=== PATIENT | female | born 1990 | race Caucasian/White ===

== ENCOUNTER 2017-03-30 16:06 | Inpatient (IN) | payer OTHER ==
[2017-03-30] VITALS (7 sets, daily range): BP systolic 106–142; BP diastolic 61–88
[~2017-03-30] VITALS: Ht 157.5 cm; Wt 74.0 kg
[2017-03-30] MEDS ORDERED: LR 1,000 ML IV SCH (17:32)
[2017-03-30] MEDS ORDERED: LACTATED RINGER'S 1000 ML IV ONE (17:45)
[2017-03-30 18:32] LABS: MEAN CORPUSCULAR HEMOGLOBIN 32.9 pg (27.0-33.0); MEAN CORPUSCULAR HGB CONC 34.7 g/dl (32.0-36.5); MEAN CORPUSCULAR VOLUME 94.9 fl (80.0-96.0); RED CELL DISTRIBUTION WIDTH 13.1 % (11.5-14.5); WHITE BLOOD COUNT 10.8 K/mm3 (4.0-10.0)
[2017-03-30] MEDS ORDERED: VANCOMYCIN HCL 1,000 MG, VIAL MATE ADAPTER 1 EACH in D5W 250 ML IV SCH (19:00)
[2017-03-30] MEDS ORDERED: diphenhydrAMINE 50 MG CAP PO PRN (19:30)
--- NOTE | 2017-03-30 19:51 | HPE ---
DATE OF ADMISSION: 03/30/2017 HISTORY: 26-year-old 2, para 1, LMP 05/28/2016, EDC 04/07/2017, 39+ weeks of gestation with spontaneous rupture of membranes and GBS positive. PAST HISTORY: January 2015, 37-week spontaneous vaginal delivery of female 6 pounds 4 ounces, was GBS positive at that time and received vancomycin. LABORATORY DATA: O+, HIV negative, RPR negative, rubella immune. Varicella immune. Pap normal. Urine negative. Gonorrhea and chlamydia negative. 1-hour glucose 81. GBS is positive. On examination, no distress. Symphysis fundus height is 40, vertex presenting, ballotable, multiparous os, posterior, thick, high, closed, Ferning was positive, Nitrazine was positive, vertex is presenting. Blood pressure 132/80, respirations 18, pulse 170, temperature 97.3. Urine 1.010, pH 7, +1 protein. The rest of the examination is unremarkable. She has a category one strip. Normocephalic, atraumatic. Neck full range of motions. Pupils equal and reactive to light. Distal pulses are symmetric. No evidence of DVT, PE or superficial phebitis. Chest is clear bilaterally to bases. No wheezes or rhonchi. Uterus is nontender. Symphysis fundus height is appropriate. Category one strip. Four quadrant bowel sounds are noted. She has no rashes, lesions or pruritus. No arthralgia, myalgia. No complaints of cough, wheezes, shortness of breath or dyspnea on exertion. No chest pain. No bleeding. Neurologically complete. No incontinency, urgency, or frequency. No nausea, vomiting, diarrhea, constipation. No diabetic issues. No [employer] issues. ALLERGIES: She has allergies to PENICILLIN. Unremarkable past medical history and surgical history. Family history is noncontributory. She does not smoke or drink or abuse drugs. She is . There is no domestic violence. In summary we have a lady with spontaneous rupture of membranes. GBS positive. Allergic to PENICILLIN. Our plan of management is to give antibiotic therapy for GBS prophylaxis in the form of vancomycin, augment with Pitocin in 4 hours if not in active labor and the patient is optional with regards to epidural. We explained to both and the patient that there is a timeline with GBS positive and ruptured membranes and infectivity, tachycardia and increased risk of section and admission to NICU. We plan on letting her go 4 hours to see if she will kick into labor on her own giving us time to give her the vancomycin and if not we will augment with Pitocin.
[2017-03-30] MEDS ORDERED: * PENDING VANCOMYCIN ENTRY XX SCH (21:00)
[2017-03-30] MEDS ORDERED: OXYTOCIN DRIP 30 UNITS in APPROPRIATE DILUENT 1 EA IV SCH (22:00)
[2017-03-31] VITALS (35 sets, daily range): BP systolic 92–146; BP diastolic 50–82
[2017-03-31] MEDS ORDERED: FENTANYL 2MCG/ML ROPIVACAINE 0.2% IN 0.9% NACL 200ML IVBAG As Ordered ONE (01:05)
[2017-03-31] MEDS ORDERED: LACTATED RINGER'S 1000 ML IV PRN (02:15)
[2017-03-31] MEDS ORDERED: ONDANSETRON 4MG/2ML VIAL (J2405) IV PRN (02:15)
[2017-03-31] MEDS ORDERED: FENTANYL/ROPIVACAINE/NACL BAG 200 ML EPIDURAL SCH (02:15)
[2017-03-31] MEDS ORDERED: EPIDURAL COMMENT XX SCH (02:15)
[2017-03-31] MEDS ORDERED: NALOXONE INJ 0.4 MG/1 ML VIAL (J2310) IV PRN (02:15)
[2017-03-31] MEDS ORDERED: diphenhydrAMINE INJ 50MG/ML VIAL (J1200) IV PRN (02:15)
[2017-03-31] MEDS ORDERED: REFRIGERATOR IV KEYS XX PRN (02:15)
[2017-03-31] MEDS ORDERED: EPIDURAL/PCA KEYS XX PRN (02:15)
[2017-03-31] MEDS ORDERED: ePHEDrine SULFATE 25 MG/5 ML(5MG/ML) SYRINGE As Ordered ONE (02:39)
[2017-03-31] MEDS: ePHEDrine SULFATE 25 MG/5 ML(5MG/ML) SYRINGE IV PRN ×3 (02:41→02:55)
[2017-03-31 05:42] LABS: CORD GAS ABE A -2.4; CORD GAS ABE V -3.5; CORD GAS HCO3 A 23.8 MEQ/L; CORD GAS HCO3 V 22.3 MEQ/L; CORD GAS O2 SAT A 65.3 %; CORD GAS O2 SAT V 68.3 %; CORD GAS PCO2 A 45.6 mmHg; CORD GAS PH A 7.335 UNITS; CORD GAS PH V 7.333 UNITS; CORD GAS PO2 A 26.9 mmHg; CORD GAS PO2 V 30.1 mmHg; CORD GAS SBC A 21.6 MEQ/L; CORD GAS SBC V 20.8 MEQ/L; CORD GAS TCO2 A 25.2 MEQ/L; CORD GAS TCO2 V 23.6 MEQ/L
[2017-03-31] MEDS ORDERED: MEASLES,MUMPS,RUBELLA VACCINE INJ (MMR-II) (90707) SC SCH (05:45)
[2017-03-31] MEDS ORDERED: ACETAMINOPHEN 500 MG TAB PO PRN (05:45)
[2017-03-31] MEDS ORDERED: ANUSOL HC CREAM 30GM TOP PRN (05:45)
[2017-03-31] MEDS ORDERED: RHOGAM 300 MCG (1500 IU) INJ (J2790) IM SCH (05:45)
[2017-03-31] MEDS ORDERED: METHYLERGONOVINE MALEATE 0.2 MG TAB PO PRN (05:45)
[2017-03-31] MEDS ORDERED: MOM 30ML SUSPENSION UDC PO PRN (05:45)
[2017-03-31] MEDS ORDERED: DOCUSATE SODIUM 100 MG CAP PO PRN (05:45)
[2017-03-31] MEDS ORDERED: DIBUCAINE 1% OINTMENT 30GM TOP PRN (05:45)
[2017-03-31] MEDS ORDERED: OXYTOCIN INJ 10 UNITS/ML VIAL (J2590) As Ordered ONE (09:56)
[2017-03-31] MEDS: PRENATAL VITAMIN TAB PO SCH (10:32)
[2017-03-31] MEDS: IBUPROFEN 800 MG TAB PO PRN (13:43)
[2017-03-31] MEDS ORDERED: PRENTAB9 PO (16:26)
[2017-04-01] MEDS: IBUPROFEN 800 MG TAB PO PRN ×2 (00:35→18:20)
[2017-04-01 06:00] VITALS: BP 118/79
--- NOTE | 2017-04-01 06:50 | IPN ---
DATE: 03/31/2017 This lady and requested circumcision of their male . After discussing risks and benefits of circumcision, the medical and nonmedical indications, the penile block and aftercare, expressed understanding of the penile block and aftercare, signed and witnessed the consent form. We await the clearance by the assembler trim.
[2017-04-01 07:19] LABS: MEAN CORPUSCULAR HEMOGLOBIN 32.6 pg (27.0-33.0); MEAN CORPUSCULAR HGB CONC 32.8 g/dl (32.0-36.5); MEAN CORPUSCULAR VOLUME 99.3 fl (80.0-96.0); RED CELL DISTRIBUTION WIDTH 13.2 % (11.5-14.5)
[2017-04-01] MEDS: PRENATAL VITAMIN TAB PO SCH (07:24)
[2017-04-01 09:00] VITALS: BP 122/72
--- NOTE | 2017-04-01 10:38 | DN ---
DATE: 03/31/2017 This lady is 1, para 1, admitted with spontaneous rupture of membranes at 39+ weeks of gestation. GBS positive treated with vancomycin as she is allergic to penicillin. Required Benadryl because of itchiness with the vancomycin which she had with her previous delivery. With an epidural in place at full dilatation, delivered a live male infant, weighing 7 pounds 5 ounces, 3328 grams, Apgars of 8 and 9 at one and five minutes respectively. Arterial and venous pH performed. Placenta delivered spontaneously thereafter. Three-vessels and the cord, membranes and tissues intact. Examination of the vagina was normal. Cervix was normal. Rectal sphincter was tight. No evidence of trauma. The patient and baby tolerated the procedure well. The uterus contracted well down on Pitocin.
--- NOTE | 2017-04-01 11:23 | IPNPDOC ---
Text Note Date of Service The patient was seen on 04/01/17. NOTE PPD1 prog note States feeling well, no complaints. No heavy VB. Pain controlled. Voiding, ambulatory. Bonding well and brst feeding. Condoms for PPBC. VSSAF CTAB RRR Ut at U-2, firm Ext no CCE a/p: Doing well, d/c likely tomorrow, GBS issues with the boy. Sessions Alisia KRISHNAMURTHY, I+O VSAlisia I+O Laboratory Tests 04/01/17 06:58 Red Blood Count 3.87 L, Mean Corpuscular Volume 99.3 H, Mean Corpuscular Hemoglobin 32.6, Mean Corpuscular Hemoglobin Concent 32.8, Red Cell Distribution Width 13.2 Vital Signs Date Time Temp Pulse Resp B/P (MAP) Pulse Ox O2 Delivery O2 Flow Rate FiO2 04/01/17 09:00 97.5 100 18 122/72 (89) 97 Room Air I&O- Last 24 Hours up to 6 AM 04/01/17 06:00 Output Total 1250 ml Balance -1250 ml ANGIE CENTENO MD April 01, 2017 11:23
[2017-04-01 18:31] VITALS: BP 134/86
[2017-04-02 06:00] VITALS: BP 119/81
--- NOTE | 2017-04-02 06:01 | IPNPDOC ---
Text Note Date of Service The patient was seen on 04/02/17. NOTE PPD2 prog note States feeling well, no complaints. No heavy VB. Pain controlled. Voiding, ambulatory. Bonding well and brst feeding. Condoms for PPBC. VSSAF CTAB RRR Ut at U-2, firm Ext no CCE a/p: Doing well, d/c this AM Sessions Alisia KRISHNAMURTHY, I+O VSAlisia I+O Laboratory Tests 04/01/17 06:58 Red Blood Count 3.87 L, Mean Corpuscular Volume 99.3 H, Mean Corpuscular Hemoglobin 32.6, Mean Corpuscular Hemoglobin Concent 32.8, Red Cell Distribution Width 13.2 Vital Signs Date Time Temp Pulse Resp B/P (MAP) Pulse Ox O2 Delivery O2 Flow Rate FiO2 04/01/17 18:31 98.5 84 16 134/86 (102) 99 Room Air I&O- Last 24 Hours up to 6 AM 04/02/17 06:00 Intake Total 1200 ml Balance 1200 ml SESSIONS,ANGIE Sandy MD April 02, 2017 06:01
--- NOTE | 2017-04-02 06:09 | DS.PDOC ---
Discharge Summary General Date of Admission March 30, 2017 at 17:25 Date of Discharge [id number] Discharge Summary PROCEDURES PERFORMED DURING STAY: spontaneous vaginal delivery ADMITTING DIAGNOSES: Labor DISCHARGE DIAGNOSES: 1. Healthy HOSPITAL COURSE: Admitted in active labor. Underwent an uncomplicated delivery. See delivery note. DISCHARGE MEDICATIONS: Standard meds, dispensed. Condoms for control Physical exam: see note from this morning LABORATORY DATA: Please see below. ACTIVITY: as tolerated. Nothing in vagina for 6 weeks. No bathing for 2 weeks , shower only. DIET: regular DISPOSITION:stable TIME SPENT ON DISCHARGE: Greater than 15 minutes. Sessions MD Vital Signs/I&Os Vital Signs Date Time Temp Pulse Resp B/P (MAP) Pulse Ox O2 Delivery O2 Flow Rate FiO2 04/01/17 18:31 98.5 84 16 134/86 (102) 99 Room Air I&O- Last 24 Hours up to 6 AM 04/02/17 06:00 Intake Total 1200 ml Balance 1200 ml Laboratory Data CBC/BMP Laboratory Tests 04/01/17 06:58 Red Blood Count 3.87 L, Mean Corpuscular Volume 99.3 H, Mean Corpuscular Hemoglobin 32.6, Mean Corpuscular Hemoglobin Concent 32.8, Red Cell Distribution Width 13.2 Discharge Medications Scheduled Multivitamins/ ( 27-0.8 mg) 1 Tab Tab, 1 TAB PO DAILY, (Reported ) Multivitamins/ ( 27-0.8 mg) 1 Tab Tab, 1 TAB PO DAILY, (Reported ) Allergies Coded Allergies: Carrot (Verified Allergy, Intermediate, WHEEZING, PRURITIS & RASH, 03/30/17) Cefaclor (Verified Allergy, Intermediate, WHEEZING, PRURITIS & RASH, ) Celery (Verified Allergy, Intermediate, WHEEZING, PRURITIS & RASH, 03/30/17) Diphtheria Toxoid-containing Vaccin (Verified Allergy, Intermediate, WHEEZING, PRURITIS & RASH w/ TDAP, 03/30/17) NUTS (Verified Allergy, Intermediate, WHEEZING, PRURITIS & RASH, 03/30/17) Penicillins (Verified Allergy, Intermediate, WHEEZING, PRURITIS & RASH, 03/30/17) Pertussis Vaccine (Verified Allergy, Intermediate, WHEEZING, PRURITIS & RASH w/TDAP, 03/30/17) Tetanus Toxoid, Adsorbed (Verified Allergy, Intermediate, WHEEZING, PRURITIS & RASH w/ TDAP, 03/30/17) SESSIONS,ANGIE Sandy MD April 02, 2017 06:09
[2017-04-02] MEDS: PRENATAL VITAMIN TAB PO SCH (08:27)
[2017-04-02] MEDS ORDERED: PROC2.5C TOP (10:45)
[2017-04-02] MEDS ORDERED: IBUP-1114 PO (10:45)
[2017-04-02] MEDS ORDERED: MILKSUS PO (10:45)
[2017-04-02] MEDS ORDERED: ACET50TA PO (10:45)
[2017-04-02] MEDS ORDERED: COLA100C3 PO (10:45)
[2017-04-02] MEDS ORDERED: DIBU1OIN TOP (10:45)
== END 2017-04-02 11:00 | disposition home or self-care (01) | DRG 775 ==
LOC: M LDO 16:06 → M LDI 17:25 → M OBS 03-31 07:46
PROVIDERS: ADMIT Obstetrics & Gynecology; ATTEND Obstetrics & Gynecology
PROC: 10E0XZZ Delivery of Products of Conception, External Approach (ICD-10-PCS; principal; 2017-03-31)
DX: O99.824 Streptococcus B carrier state complicating childbirth (principal); Z3A.39 39 weeks gestation of pregnancy; Z88.0 Allergy status to penicillin; Z37.0 Single live birth; Z91.048 Other nonmedicinal substance allergy status; Z88.8 Allergy status to other drugs, medicaments and biological substances; Z88.7 Allergy status to serum and vaccine